=== PATIENT | female | born 1980 | race Caucasian/White ===

== ENCOUNTER 2020-01-02 11:40 | Emergency (ER) | payer BC ==
[~2020-01-02] VITALS: Ht 152.4 cm; Wt 47.7 kg
[2020-01-02] MEDS ORDERED: LIDOcaine 1% W/epiNEPHrine 1:200,000 10ml vial IJ ONE (12:00)
[2020-01-02 13:12] VITALS: BP 135/91
== END 2020-01-02 13:14 | disposition home or self-care (01) ==
LOC: ER 11:41
DX: S71.112A Laceration without foreign body, left thigh, initial encounter (principal); Z98.890 Other specified postprocedural states; Z88.0 Allergy status to penicillin; W26.0XXA Contact with knife, initial encounter; Y93.89 Activity, other specified; Y92.89 Other specified places as the place of occurrence of the external cause; Y99.8 Other external cause status
CPT/HCPCS: 12002; 99284